=== PATIENT | female | born 1970 | race Native Hawaiian/Other Pacific Islander ===

== ENCOUNTER 2019-12-20 10:14 | Outpatient (CLI) | payer BC | END 2019-12-20 21:23 | disposition home or self-care (01) | LOC: MAMMO 10:14 | DX: Z12.31 Encounter for screening mammogram for malignant neoplasm of breast (principal) ==

== ENCOUNTER 2021-06-19 14:35 | Outpatient (CLI) | payer BC, OTHER | END 2021-06-19 19:01 | disposition home or self-care (01) | LOC: RAD 14:35 | PROVIDERS: ATTEND Registered Nurse | DX: R05.9 Cough, unspecified (principal) ==